=== PATIENT | female | born 1945 | race Caucasian/White ===

== ENCOUNTER 2023-09-22 17:42 | Inpatient (IN) | payer OTHER ==
[2023-09-22] MEDS ORDERED: Magnesium 2 GM/50 ML BAG (IN WATER) ONE (17:49)
[2023-09-22 19:02] LABS: Bacteria/HPF None Seen HPF (None Seen); Bilirubin Negative (Negative); Blood, Urine Negative (Negative); CAUTI Indications for Culture Fever or rigors; Clarity Clear (Clear); Glucose, Urine (Dipstick) Normal (Negative); Ketone, Urine Negative (Negative); Leukocyte Negative Leu/uL (Negative); Nitrite Negative (Negative); Protein, Urine (Dipstick) Negative (Neg-Trace); RBC/HPF None Seen HPF (0-3); Specific Gravity, Urine 1.005 (1.002-1.036); Squamous Epithelial None Seen HPF (0-3); Urobilinogen Normal mg/dL (Less than 2); WBC/HPF None Seen HPF (0-3); pH, Urine 5.5 (5.0-9.0)
[2023-09-22 19:15] LABS: Urine Culture Reflex No No
[2023-09-22 19:19] LABS: #Basophils 0.07 10x3/uL (0.0-0.2); %Basophils 1.2 % (0.0-1.0); %Eosinophils 3.7 % (0.0-10.0); %Lymphocytes 7.8 % (21.0-51.0); %Monocytes 1.2 % (0.0-10.0); %Neutrophils 85.9 % (42.0-75.0); Hematocrit 37.8 % (36.0-47.0); Hemoglobin 12.1 g/dL (12.0-16.0); Mean Corpuscular Hemoglobin 26.7 pg (27.0-31.0); Mean Corpuscular Volume 83.3 fL (78.0-98.0); Mean Platelet Volume 9.8 fL (7.4-10.4); Platelet Count 278 10x3/uL (130-400); RBC Distribution Width 14.1 % (11.5-14.5); Red Blood Cell (RBC) Count 4.54 mill/uL (4.20-5.40)
[2023-09-22 19:35] LABS: ALT (SGPT) 12 U/L (8-55); AST (SGOT) 18 U/L (5-34); Albumin 3.9 g/dL (3.4-4.8); Alkaline Phosphatase 84 U/L (40-110); Anion Gap 15 mmol/L (10-20); BUN (Urea Nitrogen) 9 mg/dL (9.8-20.1); Bilirubin, Total 0.4 mg/dL (0.2-1.2); Calc. Creatinine Clearance 0 mL/min (70-130); Calcium 9.9 mg/dL (7.8-10.44); Carbon Dioxide 21 mmol/L (23-31); Chloride 104 mmol/L (98-107); Estimated GFR 80; Globulin 3.6 g/dL (2.4-3.5); Glucose 131 mg/dL (83-110); Potassium 3.8 mmol/L (3.5-5.1); Protein, Total 7.5 g/dL (5.8-8.1); Sodium 136 mmol/L (136-145)
[2023-09-22 19:38] LABS: Troponin I Less than 0.010 ng/mL (< 0.028)
[2023-09-22 19:50] LABS: Influenza A by NAA Not Detected (NotDetected); Influenza B by NAA Not Detected (NotDetected); SARS-CoV-2 NAA Rapid Test DETECTED (NotDetected)
[2023-09-22] MEDS ORDERED: Benzonatate 100 MG CAP ONE (21:46)
[2023-09-23] MEDS ORDERED: Dexamethasone 10 MG/ML VIAL ONE (00:08)
[2023-09-23] MEDS ORDERED: Ipratropium/Albuterol 3 ML NEB ONE (00:09)
[2023-09-23] MEDS ORDERED: methylPREDNISolone Sod Succ 40 MG VIAL ONE (02:02)
[2023-09-23] MEDS ORDERED: Ondansetron PF 4 MG/2 ML Vial IVP PRN (02:07)
[2023-09-23] MEDS ORDERED: Acetaminophen 325 MG TAB PO PRN (02:46)
[2023-09-23] MEDS ORDERED: Albuterol 2.5 MG (3 mL) NEB ONE (02:47)
[2023-09-23] MEDS ORDERED: Albuterol 2.5 MG (0.5 mL) NEB ONE (02:47)
[2023-09-23] MEDS: Albuterol 200 PUFF (6.7GM INHALER) INH SCH (03:37)
[2023-09-23 03:40] VITALS: BMI 27.5
[2023-09-23] MEDS: Doxycycline 100 MG in Sodium Chloride 0.9% 100 ML IVPB SCH (03:58)
[2023-09-23] MEDS: methylPREDNISolone Sod Succ 40 MG VIAL IVP SCH (05:35)
[2023-09-23] MEDS: guaiFENesin/DM ER PO SCH (05:40)
[2023-09-23] MEDS ORDERED: methylPREDNISolone Sod Succ/PF 125 MG/2 ML VIAL IVP SCH (06:00)
[2023-09-23] MEDS: Mometasone 200 MCG/Formoterol 5 MCG 120 PUFF INHALER INH SCH (06:09)
[2023-09-23 06:14] LABS: #Basophils Less than 0.03 10x3/uL (0.0-0.2); #Eosinphils Less than 0.03 10x3/uL (0.0-0.7); %Basophils 0.3 % (0.0-1.0); %Lymphocytes 10.5 % (21.0-51.0); %Monocytes 1.7 % (0.0-10.0); %Neutrophils 87.2 % (42.0-75.0); Hematocrit 36.9 % (36.0-47.0); Hemoglobin 12.1 g/dL (12.0-16.0); Mean Corpuscular HGB CONC 32.8 g/dL (32.0-36.0); Mean Corpuscular Volume 82.4 fL (78.0-98.0); Mean Platelet Volume 9.9 fL (7.4-10.4); Platelet Count 319 10x3/uL (130-400); RBC Distribution Width 14.3 % (11.5-14.5); Red Blood Cell (RBC) Count 4.48 mill/uL (4.20-5.40)
[2023-09-23 06:36] LABS: Anion Gap 15 mmol/L (10-20); BUN (Urea Nitrogen) 9 mg/dL (9.8-20.1); Calc. Creatinine Clearance 63 mL/min (70-130); Calcium 9.9 mg/dL (7.8-10.44); Carbon Dioxide 21 mmol/L (23-31); Chloride 106 mmol/L (98-107); Estimated GFR 84; Glucose 146 mg/dL (83-110); Sodium 138 mmol/L (136-145)
[2023-09-23] MEDS: Benzonatate 100 MG CAP PO PRN (09:46)
[2023-09-23] MEDS: Pantoprazole DR 40 MG TAB PO SCH (09:47)
[2023-09-23] MEDS: Ascorbic Acid 500 mg Chewable Tablet PO SCH (09:47)
[2023-09-23] MEDS: Cholecalciferol 1,000 UNITS (25 MCG) TAB PO SCH (09:47)
[2023-09-23] MEDS: Enoxaparin 40 MG (0.4 mL) SYRINGE SC SCH (09:47)
[2023-09-23] MEDS: NIRMATRELVIR 150 MG (X 2)/RITONAVIR 100 MG DOSE PACK PO SCH (12:21)
[2023-09-23] MEDS: cefTRIAXone\\ROCEPHIN 1 GM in Sodium Chloride 0.9% 100 ML IVPB SCH (14:23)
[2023-09-23] MEDS: Acetaminophen 325 MG TAB PO PRN (21:02)
[2023-09-24 05:38] LABS: #Basophils Less than 0.03 10x3/uL (0.0-0.2); #Eosinphils Less than 0.03 10x3/uL (0.0-0.7); %Lymphocytes 10.3 % (21.0-51.0); %Neutrophils 86.4 % (42.0-75.0); Hematocrit 36.6 % (36.0-47.0); Hemoglobin 11.7 g/dL (12.0-16.0); Mean Corpuscular Hemoglobin 26.1 pg (27.0-31.0); Mean Corpuscular Volume 81.5 fL (78.0-98.0); Platelet Count 333 10x3/uL (130-400); RBC Distribution Width 14.7 % (11.5-14.5); Red Blood Cell (RBC) Count 4.49 mill/uL (4.20-5.40)
[2023-09-24 06:02] LABS: Anion Gap 15 mmol/L (10-20); BUN (Urea Nitrogen) 15 mg/dL (9.8-20.1); Calc. Creatinine Clearance 61 mL/min (70-130); Calcium 9.4 mg/dL (7.8-10.44); Carbon Dioxide 21 mmol/L (23-31); Chloride 105 mmol/L (98-107); Estimated GFR 80; Glucose 118 mg/dL (83-110); Potassium 4.6 mmol/L (3.5-5.1); Sodium 136 mmol/L (136-145)
[2023-09-24] MEDS: methylPREDNISolone Sod Succ 40 MG VIAL IVP SCH (08:40)
[2023-09-24 16:36] VITALS: BP 176/76; TEMP 98.4
== END 2023-09-24 17:30 | disposition home or self-care (01) | DRG 177 ==
LOC: ERS 17:42 → T4-A 09-23 01:44
PROVIDERS: ADMIT Internal Medicine; ATTEND Internal Medicine
PROC: 8E0ZXY6 Isolation (ICD-10-PCS; principal; 2023-09-23)
PROC: XW033E5 Introduction of Remdesivir Anti-infective into Peripheral Vein, Percutaneous Approach, New Technology Group 5 (ICD-10-PCS; 2023-09-23)
PROC: 3E0333Z Introduction of Anti-inflammatory into Peripheral Vein, Percutaneous Approach (ICD-10-PCS; 2023-09-23)
DX: U07.1 COVID-19 (principal); J96.01 Acute respiratory failure with hypoxia; J44.1 Chronic obstructive pulmonary disease with (acute) exacerbation; J45.901 Unspecified asthma with (acute) exacerbation; Z88.0 Allergy status to penicillin; Z98.891 History of uterine scar from previous surgery; Z90.89 Acquired absence of other organs
CPT/HCPCS: 36415; 36416; 71045; 80048; 80053; 81001; 83605; 84443; 84484; 85025; 87040; 87086; 93005; 94644; 96365; 96375; J0696; J1100; J1650; J2919; J3475; J7611; J7620; J8499

== ENCOUNTER 2024-10-19 10:36 | Emergency (ER) | payer MEDICARE ==
[2024-10-19] MEDS ORDERED: predniSONE 20 MG TAB ONE (11:56)
== END 2024-10-19 15:40 | disposition home or self-care (01) ==
LOC: ERS 10:36
DX: J45.901 Unspecified asthma with (acute) exacerbation (principal)
CPT/HCPCS: J7512; J7620

== ENCOUNTER 2025-01-22 15:55 | Inpatient (IN) | payer MEDICARE ==
[2025-01-22] MEDS ORDERED: Magnesium 2 GM/50 ML BAG (IN WATER) ONE (16:10)
[2025-01-22] MEDS ORDERED: Albuterol 2.5 MG (0.5 mL) NEB ONE (16:34)
[2025-01-22 16:52] LABS: #Basophils 0.13 10x3/uL (0.0-0.2); #Eosinophils 1.08 10x3/uL (0.0-0.7); #Monocytes 0.39 10x3/uL (0.11-0.59); #Neutrophils 6.67 10x3/uL (1.40-6.50); %Basophils 1.4 % (0.0-1.0); %Eosinophils 11.6 % (0.0-10.0); %Lymphocytes 11.2 % (21.0-51.0); %Monocytes 4.2 % (0.0-10.0); %Neutrophils 71.5 % (42.0-75.0); Hematocrit 36.5 % (36.0-47.0); Hemoglobin 11.5 g/dL (12.0-16.0); Mean Corpuscular Hemoglobin 24.9 pg (27.0-31.0); Mean Corpuscular Volume 79.0 fL (78.0-98.0); Platelet Count 301 10x3/uL (130-400); Red Blood Cell (RBC) Count 4.62 mill/uL (4.20-5.40); White Blood Cell (WBC) Count 9.32 10x3/uL (4.8-10.8)
[2025-01-22 17:47] LABS: Actual Bicarbonate (HCO3v) 20.9 mEq/L (22-28); Base Excess -4.1 mEq/L (-2.0 to +3.0); Calcium, Ionized (venous) 1.13 mmol/L (1.16-1.32); Chloride (VBG) 103 mmol/L (98-106); Hematocrit-VBG 35 % (36.0-47.0); Hemoglobin (Hb) 12.0 g/dL (11.7-16.1); Potassium (VBG) 4.65 mmol/L (3.70-5.30); Sodium 136 mmol/L (133-146)
[2025-01-22 18:09] LABS: ALT (SGPT) 10 U/L (Less than 34); AST (SGOT) 18 U/L (11-34); Albumin 3.8 g/dL (3.1-4.5); Alkaline Phosphatase 62 U/L (40-110); Anion Gap 17 mmol/L (10-20); BUN (Urea Nitrogen) 11 mg/dL (9.8-20.1); Bilirubin, Total 0.3 mg/dL (0.3-1.2); Calc. Creatinine Clearance 0 mL/min (70-130); Calcium 9.3 mg/dL (7.8-10.44); Carbon Dioxide 20 mmol/L (23-31); Chloride 102 mmol/L (98-107); Globulin 3.2 g/dL (2.4-3.5); Glucose 123 mg/dL (83-110); Magnesium 3.8 mg/dL (1.6-2.6); Potassium 4.3 mmol/L (3.5-5.1); Sodium 135 mmol/L (136-145)
[2025-01-22] MEDS ORDERED: Albuterol 2.5 MG (3 mL) NEB ONE (19:39)
[2025-01-22 22:14] VITALS: BMI 26.6
[2025-01-22] MEDS: Azithromycin 250 MG TAB PO SCH (22:23)
[2025-01-23] MEDS: Benzonatate 100 MG CAP PO PRN (00:53)
[2025-01-23] MEDS: GUAIFENESIN SF SOLN 200 MG/10 ML UDCUP PO PRN (04:04)
[2025-01-23] MEDS: Dextromethorphan Polistirex 60 MG/10 ML ER.12 HR UDCUP PO SCH (05:11)
[2025-01-23 05:37] LABS: #Basophils Less than 0.03 10x3/uL (0.0-0.2); #Eosinophils Less than 0.03 10x3/uL (0.0-0.7); #Monocytes 0.16 10x3/uL (0.11-0.59); #Neutrophils 2.84 10x3/uL (1.40-6.50); %Basophils 0.3 % (0.0-1.0); %Eosinophils 0.0 % (0.0-10.0); %Lymphocytes 15.4 % (21.0-51.0); %Monocytes 4.5 % (0.0-10.0); %Neutrophils 79.5 % (42.0-75.0); Hematocrit 31.8 % (36.0-47.0); Hemoglobin 9.9 g/dL (12.0-16.0); Mean Corpuscular Hemoglobin 24.4 pg (27.0-31.0); Mean Corpuscular Volume 78.5 fL (78.0-98.0); Platelet Count 287 10x3/uL (130-400); Red Blood Cell (RBC) Count 4.05 mill/uL (4.20-5.40); White Blood Cell (WBC) Count 3.57 10x3/uL (4.8-10.8)
[2025-01-23 05:48] LABS: Anion Gap 12 mmol/L (10-20); BUN (Urea Nitrogen) 13 mg/dL (9.8-20.1); Calc. Creatinine Clearance 67 mL/min (70-130); Calcium 9.0 mg/dL (7.8-10.44); Carbon Dioxide 22 mmol/L (23-31); Chloride 105 mmol/L (98-107); Glucose 113 mg/dL (83-110); Potassium 4.3 mmol/L (3.5-5.1); Sodium 135 mmol/L (136-145)
[2025-01-23] MEDS: Enoxaparin 40 MG (0.4 mL) SYRINGE SC SCH (08:06)
[2025-01-23] MEDS: predniSONE 20 MG TAB PO SCH (08:08)
[2025-01-23] MEDS: Benzonatate 100 MG CAP PO SCH (10:13)
[2025-01-23] MEDS: guaiFENesin/Codeine 200 mg/20 mg 10 ml Cup PO SCH (11:24)
[2025-01-23] MEDS ORDERED: Sodium Chloride 3% (15 ML) NEB NEB SCH (14:30)
[2025-01-23 15:23] VITALS: BMI 26.6
[2025-01-23] MEDS: guaiFENesin/Codeine 200 mg/20 mg 10 ml Cup PO PRN (20:30)
[2025-01-24] MEDS: Ondansetron PF 4 MG/2 ML Vial IVP PRN (14:43)
[2025-01-25] MEDS: FLU (Fluad Triv) 25-26 (65UP)PF 45 MCG/0.5 ML Syringe IM ONE (09:31)
[2025-01-25] MEDS: PNEUMOC 20-VAL CONJ-DIP CRM/PF 0.5 ML SYRINGE IM ONE (09:32)
[2025-01-25] MEDS: predniSONE 20 MG TAB PO SCH (20:43)
[2025-01-26] MEDS ORDERED: predniSONE 20 MG TAB PO SCH (08:00)
[2025-01-26] MEDS: Guaifenesin DM 100-10/5 ML UDCUP PO PRN (15:33)
[2025-01-26] MEDS: Famotidine 20 MG TAB PO SCH (20:46)
[2025-01-26] MEDS: Multivit, Therapeutic 1 TAB PO SCH (20:47)
[2025-01-26] MEDS: Benzonatate 100 MG CAP PO SCH (20:47)
[2025-01-27 06:41] LABS: #Basophils Less than 0.03 10x3/uL (0.0-0.2); #Eosinophils Less than 0.03 10x3/uL (0.0-0.7); #Monocytes 0.37 10x3/uL (0.11-0.59); #Neutrophils 2.99 10x3/uL (1.40-6.50); %Basophils 0.0 % (0.0-1.0); %Eosinophils 0.0 % (0.0-10.0); %Lymphocytes 15.1 % (21.0-51.0); %Monocytes 9.3 % (0.0-10.0); %Neutrophils 75.3 % (42.0-75.0); Hematocrit 34.3 % (36.0-47.0); Hemoglobin 10.5 g/dL (12.0-16.0); Mean Corpuscular Hemoglobin 24.6 pg (27.0-31.0); Mean Corpuscular Volume 80.5 fL (78.0-98.0); Platelet Count 340 10x3/uL (130-400); Red Blood Cell (RBC) Count 4.26 mill/uL (4.20-5.40); White Blood Cell (WBC) Count 3.97 10x3/uL (4.8-10.8)
[2025-01-27 07:04] LABS: Anion Gap 13 mmol/L (10-20); BUN (Urea Nitrogen) 21 mg/dL (9.8-20.1); Calc. Creatinine Clearance 57 mL/min (70-130); Calcium 9.3 mg/dL (7.8-10.44); Carbon Dioxide 26 mmol/L (23-31); Chloride 102 mmol/L (98-107); Glucose 136 mg/dL (83-110); Potassium 4.4 mmol/L (3.5-5.1); Sodium 137 mmol/L (136-145)
[2025-01-27] MEDS: Benzonatate 100 MG CAP PO SCH (20:17)
[2025-01-28 09:03] VITALS: BP 149/69; TEMP 97.7
[2025-01-29] MEDS ORDERED: predniSONE 20 MG TAB PO SCH (08:00)
== END 2025-01-28 19:12 | disposition home or self-care (01) | DRG 190 ==
LOC: ERS 15:55 → T4-B 20:29 → OBSVTOIN 01-23 10:09
PROVIDERS: ADMIT Student in an Organized Health Care Education/Training Program; ATTEND Internal Medicine
DX: J44.1 Chronic obstructive pulmonary disease with (acute) exacerbation (principal); J96.01 Acute respiratory failure with hypoxia; E87.1 Hypo-osmolality and hyponatremia; J44.0 Chronic obstructive pulmonary disease with (acute) lower respiratory infection; Z88.0 Allergy status to penicillin; D64.9 Anemia, unspecified; E03.9 Hypothyroidism, unspecified; J45.40 Moderate persistent asthma, uncomplicated; N18.2 Chronic kidney disease, stage 2 (mild); I12.9 Hypertensive chronic kidney disease with stage 1 through stage 4 chronic kidney disease, or unspecified chronic kidney disease; D63.1 Anemia in chronic kidney disease; Z98.891 History of uterine scar from previous surgery
CPT/HCPCS: 36415; 71045; 80048; 80053; 82805; 83735; 83880; 84484; 85025; 87428; 93005; 94640; 94760; 96365; G0378; J1650; J2405; J2919; J3475; J7512; J7611; J7626